=== PATIENT | female | born 1995 | race Asian ===

== ENCOUNTER 2019-07-05 10:54 | Emergency (ER) | payer OTHER ==
[~2019-07-05] VITALS: Ht 149.9 cm; Wt 78.2 kg
[~2019-07-05 10:54] MED LIST: ACET500C5 PO; BEN25 PO; IBUP800T48 PO; NAPR-985 PO; SUMA25TA34 PO; TRAM50TA2 PO
[2019-07-05 10:59] VITALS: Ht 149.9 cm; Wt 78.2 kg
[2019-07-05] MEDS ORDERED: SOD CHLORIDE 0.9% 1,000 ML IV STA ×2 (11:19→12:36)
[2019-07-05] MEDS ORDERED: KETOROLAC 30 MG INJ IV STA (11:19)
[2019-07-05] MEDS ORDERED: ONDANSETRON 4 MG INJ IV STA (11:19)
[2019-07-05] MEDS ORDERED: DEXAMETHASONE 10 MG/ML 1 ML INJ IV ONE (13:00)
[2019-07-05 14:08] VITALS: BP 107/62; PULSE 90; RESP 18
== END 2019-07-05 14:10 | disposition home or self-care (01) ==
LOC: FTE 10:54
DX: R50.9 Fever, unspecified (principal); Z87.891 Personal history of nicotine dependence
CPT/HCPCS: 80053; 81001; 81025; 85025; J1100; J1885; J2405; J7030; 96361; 96374; 96375

== ENCOUNTER 2019-07-08 18:52 | Emergency (ER) | payer OTHER ==
[~2019-07-08] VITALS: Ht 149.9 cm; Wt 77.7 kg
[2019-07-08 18:57] VITALS: Ht 149.9 cm; Wt 77.7 kg
[2019-07-08] MEDS ORDERED: SOD CHLORIDE 0.9% 500 ML IV STA (21:10)
[2019-07-08] MEDS ORDERED: DIPHENHYDRAMINE 50 MG INJ IV STA (21:10)
[2019-07-08] MEDS ORDERED: KETOROLAC 30 MG INJ IV STA (21:10)
[2019-07-08] MEDS ORDERED: METOCLOPRAMIDE 10 MG INJ IV STA (21:10)
[2019-07-08 22:48] VITALS: BP 100/55; PULSE 110; RESP 17
== END 2019-07-08 23:01 | disposition home or self-care (01) ==
LOC: FTE 18:52
DX: R51 Headache (principal)
CPT/HCPCS: 70450; 81025; 96361; 96374; 96375; J1200; J1885; J2765; J7040; Z7502